=== PATIENT | male | born 1945 | race African-American/Black ===

== ENCOUNTER 2022-06-05 16:12 | Emergency (ER) | payer OTHER, MEDICAID ==
[~2022-06-05] VITALS: Ht 177.8 cm; Wt 91.0 kg
[~2022-06-05 16:12] MED LIST: ATROPINE SULFATE 1MG/10ML SYR ONE; CALCIUM CHLORIDE 1GM/10ML SYR IV ONE; EPINEPHRINE 0.1MG/ML (1:10,000) 10ML SYR ONE; SODIUM BICARBONATE 8.4% 1 MEQ/ML 50ML SYR IV ONE
[2022-06-05 19:45] LABS: HEMATOCRIT. 32.2 % (42.0-52.0); HEMOGLOBIN. 10.3 g/dL (14.0-18.0); MEAN CORPUSCULAR HEMOGLOBIN 29.4 pg (28.0-32.0); MEAN PLATELET VOLUME 8.7 fl (7.4-10.4); PLATELET 272 x1000/uL (130-400); RED CELL DISTRIBUTION WIDTH 16.4 % (11.6-14.6)
[2022-06-05 19:55] LABS: CHLORIDE 92 mEq/L (98-107)
[2022-06-05 19:56] LABS: INR 1.1; PROTHROMBIN TIME 11.4 sec (9.6-11.0)
[2022-06-05] MEDS ORDERED: PIPERACILLIN/TAZOBACTAM 3.375GM/50ML PREMIX IV ONE (20:15)
[2022-06-05] MEDS ORDERED: PIPERACILLIN/TAZ 3.375G PREMIX 50 ML IV NR (20:15)
[2022-06-05 20:42] LABS: PLATELET ESTIMATE NORMAL
[2022-06-05] MEDS ORDERED: IOHEXOL-350 100 ML BOTTLE ONE (21:46)
[2022-06-05 23:15] VITALS: BP 131/76
[2022-06-05] MEDS ORDERED: SUCCINYLCHOLINE CHLORIDE 200MG/10ML IV ONE (23:30)
[2022-06-05] MEDS ORDERED: ETOMIDATE 2MG/ML 10ML VIAL IV ONE (23:30)
[2022-06-05] MEDS ORDERED: FENTANYL 2500MCG/250ML PMX 250 ML IV PRN (23:32)
[2022-06-05] MEDS ORDERED: MIDAZOLAM HCL 100 MG in SODIUM CHLORIDE 0.9% 100 ML IV PRN (23:45)
== END 2022-06-06 00:05 ==
LOC: ER 16:12
DX: J18.9 Pneumonia, unspecified organism (principal); I72.9 Aneurysm of unspecified site; E11.22 Type 2 diabetes mellitus with diabetic chronic kidney disease; N18.6 End stage renal disease; I49.9 Cardiac arrhythmia, unspecified
CPT/HCPCS: 31500; 36415; 71045; 71275; 74174; 80053; 82962; 83880; 84484; 85025; 85610; 86850; 86900; 86901; 93005; 96365; 99291; J0461; J2543; J3490; Q9967